=== PATIENT | male | born 1990 | race Two or more races ===

== ENCOUNTER 2020-11-12 05:56 | Day surgery (SDC) | payer MEDICAID ==
[~2020-11-12] VITALS: Ht 190.5 cm; Wt 86.2 kg
[~2020-11-12 05:56] MED LIST: ADDERALL 20 MG20 M1 PO; KLONOPIN1 MG
[2020-11-12] MEDS ORDERED: HYDROCODON-ACE1 EA10 PO (06:38)
--- NOTE | 2020-11-12 06:46 | NUR ---
0459 PT HAS A POSTIIVE LIFETIME SUICIDE SCREENING. PT STATES HE SEES DR NATIVIDAD ANTONIO ON A REGULAR BASIS AND DOES NOT WISH TO BE EVALUATED BY BEHAVIORAL HEALTH NURSE. NEXT APPOINTMENT WITH IS November. PT STATES SHE HAS HELPED HIM "TREMENDOUSLY WITH DEPRESSION AND PSTD"
[2020-11-12 06:48] VITALS: BP 106/68; Ht 190.5 cm; Wt 86.2 kg
--- NOTE | 2020-11-12 10:14 | NUR ---
LMA IN AIRWAY ON ADMIT
--- NOTE | 2020-11-12 12:05 | NUR ---
IV D/C'S WITH TIP INTACT AT 1140. PATIENT UP AND DRESSED. SLING REMAINS IN PLACE.
--- NOTE | 2020-11-12 14:26 | OP ---
PATIENT NAME: HUGO WYATT MEDICAL RECORD: [id number] :90 LOCATION:[facility] ADMISSION DATE: SURGEON: DEVANTE LARA DO DATE OF OPERATION: 11/12/2020 PROCEDURE PERFORMED: Left shoulder arthroscopy with subacromial decompression, distal clavicle excision, biceps tenodesis. PREOPERATIVE DIAGNOSES: Left shoulder subacromial impingement, acromioclavicular joint osteoarthritis, superior labrum anterior and posterior tear and [place] complex. POSTOPERATIVE DIAGNOSES: Left shoulder subacromial impingement, acromioclavicular joint osteoarthritis, superior labrum anterior and posterior tear and [place] complex. INDICATIONS: Mr. Wyatt is a 30-year-old male who has had left shoulder pain for a long time. He was tired of dealing with the pain and wanted something done surgically. He had an MR arthrogram showing the above findings. He was aware of the risks including infection, bleeding, damage to nerves or vessels, need for further surgery, continued pain, arthrofibrosis or frozen shoulder syndrome, failure of implants, cosmetic deformity of the biceps. He was aware of all that and other risks and he signed the consent. SURGEON: Devante Lara DO DESCRIPTION OF PROCEDURE: The operative was taken to the operative suite, laid in the right lateral decubitus position. After given a block by anesthesia in preoperative area, put the left shoulder up. He was given 900 mg of clindamycin, sedated and LMA was placed. The left shoulder was then prepped and draped in sterile fashion. A timeout was performed. Everyone was in agreeance with the correct side, site, patient and procedure. I then began by inserting an 18-gauge spinal needle at the posterior portal and inflating the shoulder joint with 60 mL of normal saline. I then established a posterior portal with a 11-blade scalpel. Trocar was then entered in the joint. I then established an anterior portal with an 18-gauge spinal needle and 11- blade scalpel. Trocar was entered in. I then saw that he had a Adalberto complex and the type 3 SLAP tear, went up into the biceps. I then inspected the joint. No loose body was seen in it. The subscapularis, infraspinatus and supraspinatus were all in good repair. I then brought in a burner to the anterior portal and did a biceps tenotomy at that point. I then went to the subacromial space, established a lateral portal using 18-gauge spinal needle and 11-blade scalpel, brought the trocar in and then the shaver and ablator, cleaned of the subacromial space through the distal clavicle excision through the anterior portal, opened up the AC joint approximately 7 mm and then through the lateral portal, a subacromial decompression and acromioplasty. I then removed the instruments from the shoulder and went to the anterior humerus, made a small incision, dissected down the long head of the biceps tendon. We made a unicortical hole in the anterior humerus, put a 2.9 JuggerLoc loop stitch in and cinched the long head of the biceps tendon down to the humerus. I then cut the excess suture and used a free needle and went back through the tendon and tied it down. I then cut the excess tendon and suture and irrigated. Ramon Antony, certified ethical hacker then closed the open site with 2-0 Vicryl in inverted interrupted fashion, 4-0 Monocryl ran on the skin and 4-0 Monocryl inverted interrupted fashion on the portal sites and then dressed them all with Dermabond, Telfa and OPERATIVE REPORT [id number] HUGO WYATT. He was then awakened and taken to recovery in stable condition. BLOOD LOSS: Minimal. COMPLICATIONS: None. TRANSINT:[id number] Voice Confirmation ID: [id number] DOCUMENT ID: [id number] DEVANTE LARA DO at 1426 CC: [id number] DICTATION DATE: 11/12/20 1134 TIE KNITTER HELPER: 11/12/20 1409 [facility] 11/12/20 [id number] [place] [address]
== END 2020-11-12 11:55 | disposition home or self-care (01) ==
LOC: D.OPS 05:56
PROVIDERS: ATTEND Orthopaedic Surgery
DX: M75.42 Impingement syndrome of left shoulder (principal); M13.812 Other specified arthritis, left shoulder; S43.432A Superior glenoid labrum lesion of left shoulder, initial encounter; X58.XXXA Exposure to other specified factors, initial encounter; M25.512 Pain in left shoulder; G56.03 Carpal tunnel syndrome, bilateral upper limbs